=== PATIENT | female | born 1960 | race Caucasian/White ===

== ENCOUNTER 2020-05-18 09:09 | Emergency (ER) | payer SELFPAY ==
[~2020-05-18] VITALS: Ht 154.9 cm; Wt 55.0 kg
[2020-05-18 09:53] VITALS: BP 167/81
== END 2020-05-18 09:54 | disposition home or self-care (01) ==
LOC: ER 09:09
DX: S91.332A Puncture wound without foreign body, left foot, initial encounter (principal); Z88.5 Allergy status to narcotic agent; W22.8XXA Striking against or struck by other objects, initial encounter; Y93.89 Activity, other specified; Y92.018 Other place in single-family (private) house as the place of occurrence of the external cause
CPT/HCPCS: 99281